=== PATIENT | male | born 1980 | race Caucasian/White ===

== ENCOUNTER 2017-06-05 12:33 | Emergency (ER) | payer BC ==
[2017-06-05] MEDS ORDERED: Sodium Chloride 0.9% 10 ML Syringe FLUSH PRN (12:45)
[2017-06-05] MEDS ORDERED: HYDROmorphone 1 MG/ML Syringe IVPUSH ONE ×2 (12:45→13:29)
[2017-06-05] MEDS ORDERED: HYDROmorphone 1 MG/ML Syringe ONE (13:39)
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
--- NOTE | 2017-06-06 07:21 | CR ---
Left wrist: Four views of the left wrist were obtained. Comparison: No prior study. Distal radial fracture is seen which is mildly comminuted. Articular extension is seen along the ulnar side of the radial fracture. Posterior impaction is seen with dorsal tilt of the distal radial articular margin. No additional fracture or other bony abnormality is identified. Soft tissue swelling is seen. Impression: 1. Mildly impacted and comminuted distal left radial fracture as noted above. 2. Soft tissue swelling. Diagnostic code #3
== END 2017-06-05 14:20 | disposition home or self-care (01) ==
LOC: JD.ED 12:33
DX: S52.592A Other fractures of lower end of left radius, initial encounter for closed fracture (principal); S40.012A Contusion of left shoulder, initial encounter; V19.9XXA Pedal cyclist (driver) (passenger) injured in unspecified traffic accident, initial encounter
CPT/HCPCS: 29125; 73030; 73110; 96374; 99284; J1170